=== PATIENT | female | born 1995 | race Caucasian/White ===

== ENCOUNTER 2017-02-07 00:38 | Emergency (ER) | payer SELFPAY ==
[~2017-02-07] VITALS: Ht 167.6 cm; Wt 86.2 kg
[2017-02-07] MEDS ORDERED: LORAZEPAM 1MG TABLET PO ONE (04:45)
[2017-02-07 07:59] VITALS: BP 110/62
== END 2017-02-07 08:00 | disposition home or self-care (01) ==
LOC: ER 00:40
DX: F41.9 Anxiety disorder, unspecified (principal); R07.89 Other chest pain; F12.10 Cannabis abuse, uncomplicated
CPT/HCPCS: 71010; 81025; 93005; 99283; Z7610